=== PATIENT | male | born 1985 | race Caucasian/White ===

== ENCOUNTER 2022-09-10 21:55 | Inpatient (IN) | payer OTHER ==
[2022-09-10] MEDS ORDERED: diazePAM CARPU-JECT 10 MG/2 ML DISP.SYRIN IVPUSH ONE (22:35)
[2022-09-10] MEDS ORDERED: MAG HYDROX/AL HYDROX/SIMETH 30 ML UNIT-DOSE CUP PO ONE (22:35)
[2022-09-10] MEDS ORDERED: FAMOTIDINE 20 MG/50 ML IVPB 20 MG/50 ML MG IVPB ONE ×2 (22:35→22:42)
[2022-09-10] MEDS ORDERED: diazePAM CARPU-JECT 10 MG/2 ML DISP.SYRIN ONE ×2 (22:42→23:07)
[2022-09-10] MEDS ORDERED: MAG HYDROX/AL HYDROX/SIMETH 30 ML UNIT-DOSE CUP ONE (22:42)
[2022-09-10 23:18] LABS: HEMOGLOBIN 16.4 GM/dL (11.7-16.9); WHITE BLOOD COUNT 2.4 K/mm3 (4.0-10.0)
[2022-09-10 23:30] LABS: EPI CELLS 7 /uL (0-25.1); HYALINE CASTS 3 /uL (0-3.1); PH,URINE 6.5 (5.0-8.0); URINE APPEARANCE CLEAR; URINE BACTERIA 9 /uL (0-1359); URINE BILIRUBIN NEGATIVE (NEGATIVE); URINE COLOR YELLOW; URINE GLUCOSE (UA) NEGATIVE (NEGATIVE); URINE KETONE 1+ (NEGATIVE); URINE LEUK ESTERASE NEGATIVE (NEGATIVE); URINE NITRITE NEGATIVE (NEGATIVE); URINE PROTEIN 3+ (NEGATIVE); URINE RBC 21 /uL (0-23.9); URINE WBC 13 /uL (0-25.8)
[2022-09-10 23:39] LABS: ALBUMIN 4.8 g/dl (3.4-5.0); BLOOD UREA NITROGEN 5.5 mg/dL (7-18); CALCIUM 9.3 mg/dL (8.5-10.1)
[2022-09-10 23:43] LABS: BILIRUBIN,TOTAL 1.1 mg/dL (0.2-1)
[2022-09-10 23:44] LABS: TOT PROT 8.9 g/dl (6.4-8.2)
[2022-09-10 23:59] LABS: BASO % 1.6 % (0-2.0); EOS % 1.2 % (0-4.5); HEMATOCRIT 46.1 % (35.4-49); LYMPH % 33.3 % (8-40); MCH 33.8 pg (25.7-33.7); MCHC 35.6 g/dl (32.0-35.9); MEAN CELL VOLUME 94.7 fl (80-96); MEAN PLT VOLUME 6.8 fl (7.5-11.1); MONO % 17.8 % (3.8-10.2); NEUT % 46.1 % (42.8-82.8); PLATELET COUNT 165 10^3/uL (134-434); RBC 4.87 M/mm3 (4.00-5.60); RDW 13.9 % (11.9-15.9)
[2022-09-11 00:15] LABS: LACTIC ACID 3.1 mmol/L (0.4-2.0)
[2022-09-11] MEDS ORDERED: LACTATED RINGERS SOLUTION 1000 ML INFUS.BAG IV ONE (00:19)
[2022-09-11] MEDS: SODIUM CHLORIDE 1,000 ML IV STA ×3 (01:17→03:02)
[2022-09-11 02:16] LABS: LACTIC ACID 3.9 mmol/L (0.4-2.0)
[2022-09-11] MEDS ORDERED: THIAMINE HCL 200 MG/2 ML VIAL IVPB ONE (02:22)
[2022-09-11] MEDS ORDERED: DEXTROSE 5%-NORMAL SALINE 1,000 ML IV ONE (02:23)
[2022-09-11] MEDS ORDERED: diazePAM CARPU-JECT 10 MG/2 ML DISP.SYRIN IVPUSH ONE ×2 (02:24→04:34)
[2022-09-11] MEDS ORDERED: diazePAM CARPU-JECT 10 MG/2 ML DISP.SYRIN ONE ×3 (02:32→08:39)
[2022-09-11] MEDS ORDERED: THIAMINE HCL 200 MG/2 ML VIAL ONE (02:33)
[2022-09-11 03:13] LABS: VENOUS BASE EXCESS 0.7 mmol/L (-2-2); VENOUS O2 SATURATION 96.6 % (70-80); VENOUS PCO2 35.7 mmHg (38-52); VENOUS PH 7.449 (7.310-7.410)
[2022-09-11] MEDS ORDERED: PIPERACILLIN/TAZOB 4.5 GM 4.5 GM in DEXTROSE 5%-WATER 100 ML IVPB ONE (04:49)
[2022-09-11] MEDS: DEXTROSE 5%-NORMAL SALINE 1,000 ML IV SCH ×2 (04:58→09:09)
[2022-09-11] MEDS ORDERED: PIPERACILLIN/TAZOB 4.5 GM 4.5 GM/100 ML BAG IVPB ONE (05:02)
[2022-09-11 05:51] LABS: INR 1.05 (0.83-1.09); PROTHROMBIN TIME (PATIENT) 12.2 SEC (9.7-13.0)
[2022-09-11 05:54] LABS: ACTIVATED PTT 32.4 SECONDS (25.2-36.5)
[2022-09-11 07:23] LABS: LACTIC ACID 2.7 mmol/L (0.4-2.0)
[2022-09-11] MEDS ORDERED: diazePAM CARPU-JECT 10 MG/2 ML DISP.SYRIN IVPUSH PRN (08:19)
[2022-09-11] MEDS ORDERED: DEXTROSE 5%-LACTATED RINGERS 1,000 ML IV SCH (08:30)
[2022-09-11] MEDS: FOLIC ACID 1 MG TABLET (FP) PO SCH (10:30)
[2022-09-11] MEDS: PANTOPRAZOLE 40 MG TABLET PO SCH (10:30)
[2022-09-11] MEDS: LOSARTAN POTASSIUM 50 MG TABLET PO SCH (10:30)
[2022-09-11] MEDS: THIAMINE HCL 100 MG TABLET (FP) PO SCH (10:30)
[2022-09-11] MEDS: BUPRENORPHINE/NALOXONE 8 MG/2 MG FILM PACKET SL SCH (10:30)
[2022-09-11] MEDS: LORazepam 1 MG TABLET PO SCH ×2 (10:30→21:49)
[2022-09-11] MEDS: HEPARIN NA (PORCINE) 5,000 UNITS/ML 1ML VIAL SQ SCH ×2 (10:30→21:54)
[2022-09-11] MEDS: MULTIVITAMINS (DAILY MVI) TABLET (FP) PO SCH (10:30)
[2022-09-11] MEDS ORDERED: BUPRENORPHINE/NALOXONE 8 MG/2 MG FILM PACKET ONE (10:40)
[2022-09-11] MEDS ORDERED: LOSARTAN POTASSIUM 50 MG TABLET ONE (10:40)
[2022-09-11] MEDS ORDERED: THIAMINE HCL 100 MG TABLET (FP) ONE (10:40)
[2022-09-11] MEDS ORDERED: PANTOPRAZOLE 40 MG TABLET PO ONE (10:40)
[2022-09-11] MEDS ORDERED: MULTIVITAMINS (DAILY MVI) TABLET (FP) ONE (10:41)
[2022-09-11] MEDS ORDERED: LORazepam 1 MG TABLET ONE ×2 (10:41→10:49)
[2022-09-11] MEDS ORDERED: FOLIC ACID 1 MG TABLET (FP) ONE (10:41)
[2022-09-11] MEDS ORDERED: HEPARIN NA (PORCINE) 5,000 UNITS/ML 1ML VIAL ONE (10:42)
[2022-09-11] MEDS ORDERED: ONDANSETRON 4 MG/2 ML VIAL IVPUSH PRN (11:47)
[2022-09-11] MEDS ORDERED: ESCITALOPRAM OXALATE 10 MG TABLET ONE (11:48)
[2022-09-11] MEDS: ESCITALOPRAM OXALATE 10 MG TABLET PO SCH (11:51)
[2022-09-11 13:51] LABS: ALBUMIN 4.7 g/dl (3.4-5.0)
[2022-09-11 13:54] LABS: BILIRUBIN,DIRECT 0.5 mg/dL (0.0-0.2)
[2022-09-11 13:56] LABS: BILIRUBIN,TOTAL 1.8 mg/dL (0.2-1); TOT PROT 8.4 g/dl (6.4-8.2)
[2022-09-11] MEDS ORDERED: GABAPENTIN 300 MG CAPSULE ONE (14:22)
[2022-09-11] MEDS: GABAPENTIN 300 MG CAPSULE PO SCH ×2 (14:26→21:52)
[2022-09-11] MEDS ORDERED: LIDOCAINE 5% TOPICAL PATCH ONE (15:20)
[2022-09-11] MEDS: LIDOCAINE 5% TOPICAL PATCH TP SCH (15:50)
[2022-09-11] MEDS ORDERED: KETOROLAC TROMETHAMINE 15 MG/ML VIAL IVPUSH ONE (17:47)
[2022-09-11] MEDS ORDERED: KETOROLAC TROMETHAMINE 15 MG/ML VIAL ONE (18:17)
[2022-09-11] MEDS: LORazepam 2 MG/ML SDV VIAL IVPUSH PRN (20:25)
[2022-09-11] MEDS: QUEtiapine FUMARATE 50 MG TABLET PO SCH (21:52)
[2022-09-11] MEDS: LIDOCAINE PATCH REMOVAL MC SCH (21:53)
[2022-09-12] MEDS: GABAPENTIN 300 MG CAPSULE PO SCH ×3 (06:11→22:01)
[2022-09-12] MEDS: DEXTROSE 5%-NORMAL SALINE 1,000 ML IV SCH (06:19)
[2022-09-12] MEDS: LEVOTHYROXINE NA 100 MCG TABLET (FP) PO SCH (06:22)
[2022-09-12 08:05] LABS: BASO % 1.1 % (0-2.0); EOS % 4.2 % (0-4.5); HEMATOCRIT 40.7 % (35.4-49); HEMOGLOBIN 14.3 GM/dL (11.7-16.9); MCH 33.4 pg (25.7-33.7); MCHC 35.2 g/dl (32.0-35.9); MEAN CELL VOLUME 94.8 fl (80-96); MONO % 16.4 % (3.8-10.2); NEUT % 48.3 % (42.8-82.8); RBC 4.29 M/mm3 (4.00-5.60); RDW 13.5 % (11.9-15.9)
[2022-09-12 08:10] LABS: MEAN PLT VOLUME 7.4 fl (7.5-11.1); PLATELET COUNT 92 10^3/uL (134-434)
[2022-09-12 08:24] LABS: BLOOD UREA NITROGEN 9.7 mg/dL (7-18); CALCIUM 8.9 mg/dL (8.5-10.1); MAGNESIUM 1.8 mg/dL (1.8-2.4)
[2022-09-12 08:29] LABS: BILIRUBIN,TOTAL 1.5 mg/dL (0.2-1); TOT PROT 7.4 g/dl (6.4-8.2)
[2022-09-12] MEDS: LIDOCAINE 5% TOPICAL PATCH TP SCH (09:38)
[2022-09-12] MEDS: BUPRENORPHINE/NALOXONE 8 MG/2 MG FILM PACKET SL SCH (09:39)
[2022-09-12] MEDS: LORazepam 1 MG TABLET PO SCH ×2 (09:39→22:02)
[2022-09-12] MEDS: FOLIC ACID 1 MG TABLET (FP) PO SCH (09:39)
[2022-09-12] MEDS: THIAMINE HCL 100 MG TABLET (FP) PO SCH (09:41)
[2022-09-12] MEDS: PANTOPRAZOLE 40 MG TABLET PO SCH (09:41)
[2022-09-12] MEDS: LOSARTAN POTASSIUM 50 MG TABLET PO SCH (09:41)
[2022-09-12] MEDS: HEPARIN NA (PORCINE) 5,000 UNITS/ML 1ML VIAL SQ SCH ×2 (09:41→22:01)
[2022-09-12] MEDS: ESCITALOPRAM OXALATE 10 MG TABLET PO SCH (09:41)
[2022-09-12] MEDS: MULTIVITAMINS (DAILY MVI) TABLET (FP) PO SCH (09:41)
[2022-09-12] MEDS: LORazepam 2 MG/ML SDV VIAL IVPUSH PRN (19:04)
[2022-09-12] MEDS: LIDOCAINE PATCH REMOVAL MC SCH (22:02)
[2022-09-12] MEDS: QUEtiapine FUMARATE 50 MG TABLET PO SCH (22:02)
[2022-09-12 22:50] VITALS: BMI 31.3
[2022-09-13] MEDS: LEVOTHYROXINE NA 100 MCG TABLET (FP) PO SCH (06:24)
[2022-09-13] MEDS: GABAPENTIN 300 MG CAPSULE PO SCH ×3 (06:24→22:20)
[2022-09-13] MEDS: DEXTROSE 5%-NORMAL SALINE 1,000 ML IV SCH ×2 (06:27→14:13)
[2022-09-13 08:00] LABS: ALBUMIN 3.8 g/dl (3.4-5.0); BLOOD UREA NITROGEN 14.5 mg/dL (7-18)
[2022-09-13 08:03] LABS: BILIRUBIN,TOTAL 1.2 mg/dL (0.2-1); TOT PROT 7.1 g/dl (6.4-8.2)
[2022-09-13] MEDS: LIDOCAINE 5% TOPICAL PATCH TP SCH (09:19)
[2022-09-13] MEDS: ESCITALOPRAM OXALATE 10 MG TABLET PO SCH (09:20)
[2022-09-13] MEDS: LORazepam 1 MG TABLET PO SCH ×2 (09:20→22:20)
[2022-09-13] MEDS: PANTOPRAZOLE 40 MG TABLET PO SCH (09:20)
[2022-09-13] MEDS: MULTIVITAMINS (DAILY MVI) TABLET (FP) PO SCH (09:20)
[2022-09-13] MEDS: HEPARIN NA (PORCINE) 5,000 UNITS/ML 1ML VIAL SQ SCH ×2 (09:20→22:21)
[2022-09-13] MEDS: THIAMINE HCL 100 MG TABLET (FP) PO SCH (09:20)
[2022-09-13] MEDS: FOLIC ACID 1 MG TABLET (FP) PO SCH (09:21)
[2022-09-13] MEDS: BUPRENORPHINE/NALOXONE 8 MG/2 MG FILM PACKET SL SCH (09:22)
[2022-09-13] MEDS: LOSARTAN POTASSIUM 50 MG TABLET PO SCH (09:22)
[2022-09-13 09:33] LABS: HEMATOCRIT 41.9 % (35.4-49); HEMOGLOBIN 14.5 GM/dL (11.7-16.9); MCHC 34.6 g/dl (32.0-35.9); MEAN CELL VOLUME 95.2 fl (80-96); PLATELET COUNT 79 10^3/uL (134-434); RDW 13.7 % (11.9-15.9)
[2022-09-13 09:49] LABS: WHITE BLOOD COUNT 1.9 K/mm3 (4.0-10.0)
[2022-09-13 09:51] LABS: BILIRUBIN,DIRECT 0.4 mg/dL (0.0-0.2)
[2022-09-13 11:28] LABS: ANISOCYTOSIS 0; MACROCYTOSIS 1+
[2022-09-13] MEDS ORDERED: LORazepam 2 MG/ML SDV VIAL IVPUSH PRN (13:20)
[2022-09-13] MEDS ORDERED: ONDANSETRON 4 MG/2 ML VIAL IVPUSH PRN (13:20)
[2022-09-13 15:07] LABS: COCAINE QUALITATIVE URINE Negative ng/mL (Cutoff=300); MARIJUANA QL URINE CANNABINOID Negative ng/mL (Cutoff=50); METHADONE,QUALITATIVE URINE Negative ng/mL (Cutoff=300); OPIATES QL URINE Negative ng/mL (Cutoff=300); PHENCYCLIDINE,QUAL URINE Negative ng/mL (Cutoff=25); PROPOXYPHENE QL URINE Negative ng/mL (Cutoff=300); URINE AMPHETAMINES Negative ng/mL (Cutoff=1000)
[2022-09-13] MEDS ORDERED: PIPERACILLIN/TAZOB 3.375 GM 3.375 GM in DEXTROSE 5%-WATER - 50 ML IVPB SCH (18:00)
[2022-09-13] MEDS ORDERED: QUEtiapine FUMARATE 25 MG TABLET ONE (21:22)
[2022-09-13] MEDS: QUEtiapine FUMARATE 50 MG TABLET PO SCH (22:20)
[2022-09-14] MEDS: PIPERACILLIN/TAZOB 3.375 GM 3.375 GM in DEXTROSE 5%-WATER - 50 ML IVPB SCH ×3 (00:10→09:10)
[2022-09-14] MEDS: LIDOCAINE PATCH REMOVAL MC SCH ×2 (02:46→21:24)
[2022-09-14] MEDS: GABAPENTIN 300 MG CAPSULE PO SCH ×3 (05:24→21:22)
[2022-09-14] MEDS: LEVOTHYROXINE NA 100 MCG TABLET (FP) PO SCH (06:04)
[2022-09-14] MEDS: DEXTROSE 5%-NORMAL SALINE 1,000 ML IV SCH ×3 (07:36→21:22)
[2022-09-14] MEDS: LIDOCAINE 5% TOPICAL PATCH TP SCH (09:08)
[2022-09-14] MEDS: LORazepam 1 MG TABLET PO SCH ×2 (09:08→21:22)
[2022-09-14] MEDS: BUPRENORPHINE/NALOXONE 8 MG/2 MG FILM PACKET SL SCH (09:08)
[2022-09-14] MEDS: PANTOPRAZOLE 40 MG TABLET PO SCH (09:09)
[2022-09-14] MEDS: LOSARTAN POTASSIUM 50 MG TABLET PO SCH (09:09)
[2022-09-14] MEDS: ESCITALOPRAM OXALATE 10 MG TABLET PO SCH (09:09)
[2022-09-14] MEDS: THIAMINE HCL 100 MG TABLET (FP) PO SCH (09:09)
[2022-09-14] MEDS: FOLIC ACID 1 MG TABLET (FP) PO SCH (09:09)
[2022-09-14] MEDS: MULTIVITAMINS (DAILY MVI) TABLET (FP) PO SCH (09:09)
[2022-09-14] MEDS: HEPARIN NA (PORCINE) 5,000 UNITS/ML 1ML VIAL SQ SCH (09:09)
[2022-09-14 09:22] VITALS: RESP 20
[2022-09-14 11:14] LABS: BASO % 1.2 % (0-2.0); EOS % 4.6 % (0-4.5); HEMATOCRIT 38.9 % (35.4-49); HEMOGLOBIN 13.8 GM/dL (11.7-16.9); LYMPH % 23.7 % (8-40); MCH 33.4 pg (25.7-33.7); MCHC 35.4 g/dl (32.0-35.9); MEAN CELL VOLUME 94.2 fl (80-96); MEAN PLT VOLUME 7.3 fl (7.5-11.1); MONO % 18.1 % (3.8-10.2); NEUT % 52.4 % (42.8-82.8); PLATELET COUNT 88 10^3/uL (134-434); RBC 4.13 M/mm3 (4.00-5.60); RDW 13.3 % (11.9-15.9); WHITE BLOOD COUNT 2.1 K/mm3 (4.0-10.0)
[2022-09-14 11:47] LABS: ALBUMIN 3.7 g/dl (3.4-5.0); BLOOD UREA NITROGEN 15.6 mg/dL (7-18); CALCIUM 8.7 mg/dL (8.5-10.1)
[2022-09-14 11:50] LABS: PHOSPHOROUS 3.3 mg/dL (2.5-4.9)
[2022-09-14 11:51] LABS: MAGNESIUM 2.1 mg/dL (1.8-2.4)
[2022-09-14 11:52] LABS: BILIRUBIN,TOTAL 1.2 mg/dL (0.2-1); TOT PROT 6.8 g/dl (6.4-8.2)
[2022-09-14] MEDS: KCL 10 MEQ IVPB 10 MEQ/100 ML INFUS.BAG IVPB SCH ×3 (12:54→15:27)
[2022-09-14] MEDS: LORazepam 2 MG/ML SDV VIAL IVPUSH PRN ×2 (15:32→23:29)
[2022-09-14] MEDS: QUEtiapine FUMARATE 50 MG TABLET PO SCH (21:22)
[2022-09-15] MEDS: DEXTROSE 5%-NORMAL SALINE 1,000 ML IV SCH (05:36)
[2022-09-15] MEDS: GABAPENTIN 300 MG CAPSULE PO SCH ×2 (05:38→13:20)
[2022-09-15] MEDS: LEVOTHYROXINE NA 100 MCG TABLET (FP) PO SCH (06:40)
[2022-09-15] MEDS: LIDOCAINE 5% TOPICAL PATCH TP SCH (09:03)
[2022-09-15] MEDS: LORazepam 1 MG TABLET PO SCH (09:04)
[2022-09-15] MEDS: BUPRENORPHINE/NALOXONE 8 MG/2 MG FILM PACKET SL SCH (09:04)
[2022-09-15] MEDS: ESCITALOPRAM OXALATE 10 MG TABLET PO SCH (09:04)
[2022-09-15] MEDS: MULTIVITAMINS (DAILY MVI) TABLET (FP) PO SCH (09:04)
[2022-09-15] MEDS: FOLIC ACID 1 MG TABLET (FP) PO SCH (09:04)
[2022-09-15] MEDS: LOSARTAN POTASSIUM 50 MG TABLET PO SCH (09:04)
[2022-09-15] MEDS: THIAMINE HCL 100 MG TABLET (FP) PO SCH (09:04)
[2022-09-15] MEDS: PANTOPRAZOLE 40 MG TABLET PO SCH (09:04)
[2022-09-15 10:32] LABS: BASO % 1.5 % (0-2.0); EOS % 6.3 % (0-4.5); HEMATOCRIT 38.9 % (35.4-49); HEMOGLOBIN 13.5 GM/dL (11.7-16.9); LYMPH % 35.5 % (8-40); MCH 33.1 pg (25.7-33.7); MCHC 34.6 g/dl (32.0-35.9); MEAN CELL VOLUME 95.6 fl (80-96); MEAN PLT VOLUME 7.9 fl (7.5-11.1); MONO % 18.6 % (3.8-10.2); NEUT % 38.1 % (42.8-82.8); PLATELET COUNT 96 10^3/uL (134-434); RBC 4.07 M/mm3 (4.00-5.60); RDW 13.4 % (11.9-15.9)
[2022-09-15 10:34] LABS: WHITE BLOOD COUNT 1.6 K/mm3 (4.0-10.0)
[2022-09-15 10:35] LABS: INR 1.04 (0.83-1.09); PROTHROMBIN TIME (PATIENT) 12.1 SEC (9.7-13.0)
[2022-09-15 10:56] LABS: ALBUMIN 3.4 g/dl (3.4-5.0); BLOOD UREA NITROGEN 10.4 mg/dL (7-18); CALCIUM 8.2 mg/dL (8.5-10.1); MAGNESIUM 2.1 mg/dL (1.8-2.4)
[2022-09-15 10:57] LABS: ALBUMIN 3.4 g/dl (3.4-5.0)
[2022-09-15 10:59] LABS: BILIRUBIN,TOTAL 0.8 mg/dL (0.2-1); CREATININE 0.8 mg/dL (0.55-1.3); PHOSPHOROUS 3.3 mg/dL (2.5-4.9)
[2022-09-15 11:00] LABS: TOT PROT 6.3 g/dl (6.4-8.2)
[2022-09-15 11:01] LABS: BILIRUBIN,DIRECT 0.3 mg/dL (0.0-0.2)
[2022-09-15 11:02] LABS: TOT PROT 6.2 g/dl (6.4-8.2)
[2022-09-15 11:03] LABS: BILIRUBIN,TOTAL 0.8 mg/dL (0.2-1)
[2022-09-15 11:13] LABS: ANISOCYTOSIS 0; MACROCYTOSIS 0
[2022-09-15] MEDS ORDERED: POTASSIUM CHLORIDE ORAL LIQUID 20 MEQ/15 ML PO ONE (11:34)
[2022-09-15 14:37] VITALS: BP 150/106; PULSE 74; TEMP 97.6
[2022-09-16 17:06] LABS: GLIADIN ANTIBODY IGA 7 units (0-19); GLIADIN ANTIBODY IGG 3 units (0-19); TRANSGLUTAMINASE IGG < 2 U/mL (0-5)
== END 2022-09-15 17:00 | disposition home or self-care (01) | DRG 775 ==
LOC: JER 21:55 → JERBED 09-11 00:17 → J4W 09-11 19:26 → J5S 09-13 13:15 → J6S 09-14 08:30
PROVIDERS: ADMIT Internal Medicine; ATTEND Internal Medicine
DX: F10.239 Alcohol dependence with withdrawal, unspecified (principal); M62.82 Rhabdomyolysis; F13.20 Sedative, hypnotic or anxiolytic dependence, uncomplicated; F19.20 Other psychoactive substance dependence, uncomplicated; F33.9 Major depressive disorder, recurrent, unspecified; I10 Essential (primary) hypertension; K70.10 Alcoholic hepatitis without ascites; F41.8 Other specified anxiety disorders; D69.6 Thrombocytopenia, unspecified; R16.1 Splenomegaly, not elsewhere classified; R74.01 Elevation of levels of liver transaminase levels; E66.9 Obesity, unspecified; Z68.31 Body mass index [BMI] 31.0-31.9, adult
CPT/HCPCS: 36415; 74019-TC-FY; 74177-TC; 74181-TC; 76705-TC; 80053; 80076; 80307; 81003; 82105; 82140; 82248; 82550; 82553; 82607; 82728; 82746; 82784; 82803; 82962; 83516; 83540; 83550; 83605; 83690; 83735; 84100; 84484; 85025; 85610; 85730; 86038; 86705; 86803; 86850; 86900; 86901; 87340; 87517; 93005; 93010; 99285-25; C9803-CS; J1644; Q9967; U0003; U0005

== ENCOUNTER 2022-11-03 18:03 | Emergency (ER) | payer OTHER ==
[2022-11-03 18:31] VITALS: BP 141/90; PULSE 97; RESP 14; TEMP 98; BMI 59.9
[2022-11-03] MEDS ORDERED: HALOPERIDOL LACTATE 5 MG/ML IM ONE ×2 (20:19→20:22)
[2022-11-03] MEDS ORDERED: LORazepam 2 MG/ML SDV VIAL IM ONE (20:20)
[2022-11-03] MEDS ORDERED: ACETAMINOPHEN 500 MG TABLET (FP) PO ONE (23:44)
[2022-11-03] MEDS ORDERED: ACETAMINOPHEN 325 MG TABLET (FP) ONE (23:45)
== END 2022-11-03 23:56 | disposition home or self-care (01) ==
LOC: JER 18:03
PROC: 3E0233Z Introduction of Anti-inflammatory into Muscle, Percutaneous Approach (ICD-10-PCS; principal; 2022-11-03)
PROC: 3E0233Z Introduction of Anti-inflammatory into Muscle, Percutaneous Approach (ICD-10-PCS; 2022-11-03)
PROC: 3E0233Z Introduction of Anti-inflammatory into Muscle, Percutaneous Approach (ICD-10-PCS; 2022-11-03)
DX: F10.229 Alcohol dependence with intoxication, unspecified (principal); S00.81XA Abrasion of other part of head, initial encounter; S00.31XA Abrasion of nose, initial encounter; X58.XXXA Exposure to other specified factors, initial encounter; Y90.9 Presence of alcohol in blood, level not specified
CPT/HCPCS: 70450-TC; 70486-TC; 72125-TC; 93005; 93010; 99284-25

== ENCOUNTER 2023-11-18 18:34 | Inpatient (IN) | payer OTHER ==
[2023-11-18] MEDS ORDERED: chlordiazePOXIDE HCL 25 MG CAPSULE ONE (20:31)
[2023-11-18] MEDS: chlordiazePOXIDE HCL 25 MG CAPSULE PO ONE (20:59)
[2023-11-18 21:05] LABS: BASO % 3.6 % (0-2.0); EOS % 3.5 % (0-4.5); EPI CELLS 14 /uL (0-25.1); HEMATOCRIT 40.4 % (35.4-49); HEMOGLOBIN 14.1 GM/dL (11.7-16.9); HYALINE CASTS 0 /uL (0-3.1); LYMPH % 49.7 % (8-40); MCHC 34.9 g/dl (32.0-35.9); MEAN CELL VOLUME 97.4 fl (80-96); MEAN PLT VOLUME 6.8 fl (7.5-11.1); NEUT % 28.2 % (42.8-82.8); PLATELET COUNT 111 10^3/uL (134-434); RBC 4.15 M/mm3 (4.00-5.60); URINE APPEARANCE CLEAR; URINE BACTERIA 14 /uL (0-1359); URINE BILIRUBIN NEGATIVE (NEGATIVE); URINE COLOR YELLOW; URINE GLUCOSE (UA) NEGATIVE (NEGATIVE); URINE KETONE 1+ (NEGATIVE); URINE LEUK ESTERASE NEGATIVE (NEGATIVE); URINE NITRITE NEGATIVE (NEGATIVE); URINE PROTEIN 1+ (NEGATIVE); URINE RBC 13 /uL (0-23.9); URINE WBC 16 /uL (0-25.8); WHITE BLOOD COUNT 2.3 K/mm3 (4.0-10.0)
[2023-11-18 21:07] LABS: VENOUS BASE EXCESS 0.9 mmol/L (-2-2); VENOUS O2 SATURATION 87.5 % (70-80); VENOUS PCO2 46.1 mmHg (38-52); VENOUS PH 7.379 (7.310-7.410)
[2023-11-18 21:33] LABS: POTASSIUM 3.4 mmol/L (3.5-5.1)
[2023-11-18 21:35] LABS: CALCIUM 8.8 mg/dL (8.5-10.1)
[2023-11-18 21:36] LABS: ALBUMIN 4.2 g/dl (3.4-5.0); BLOOD UREA NITROGEN 8.1 mg/dL (7-18)
[2023-11-18 21:39] LABS: CREATININE 0.9 mg/dL (0.55-1.3)
[2023-11-18 21:40] LABS: TOT PROT 8.3 g/dl (6.4-8.2)
[2023-11-18 21:43] LABS: BILIRUBIN,TOTAL 1.4 mg/dL (0.2-1)
[2023-11-18] MEDS ORDERED: LIDOCAINE 4% PATCH TP ONE (22:47)
[2023-11-18] MEDS: LIDOCAINE 5% TOPICAL PATCH TP ONE (22:53)
[2023-11-18] MEDS: D5-1/2NS+40 MEQ KCL - 40 MEQ/1,000 ML INFUS.BAG IV SCH (22:53)
[2023-11-18] MEDS: LIDOCAINE PATCH REMOVAL MC SCH (23:12)
[2023-11-19] MEDS: LACTATED RINGERS SOLUTION 1,000 ML/1,000 ML INFUS.BAG IV SCH (01:19)
[2023-11-19] MEDS: THIAMINE HCL 200 MG/2 ML VIAL IVPB SCH ×2 (01:20→22:03)
[2023-11-19] MEDS: chlordiazePOXIDE HCL 25 MG CAPSULE PO PRN (04:06)
[2023-11-19] MEDS: TRIMETHOBENZAMIDE HCL 200MG/2ML INJ IM PRN (04:10)
[2023-11-19] MEDS: LORazepam 2 MG/ML SDV VIAL IVPUSH PRN ×2 (04:49→11:33)
[2023-11-19 04:57] LABS: COCAINE, UR NEGATIVE (NEGATIVE); METHADONE, UR NEGATIVE (NEGATIVE); OPIATES, URI NEGATIVE (NEGATIVE); PHENCYCLIDINE,URINE NEGATIVE (NEGATIVE); URINE AMPHETAMINES NEGATIVE (NEGATIVE); URINE BARBITURATES NEGATIVE (NEGATIVE)
[2023-11-19 05:10] LABS: URINE BENZODIAZEPINES POSITIVE (NEGATIVE)
[2023-11-19] MEDS: chlordiazePOXIDE HCL 25 MG CAPSULE PO SCH (06:29)
[2023-11-19] MEDS: GABAPENTIN 300 MG CAPSULE PO SCH ×2 (06:31→22:02)
[2023-11-19] MEDS: LORazepam 2 MG/ML SDV VIAL IVPUSH ONE ×2 (07:05→17:13)
[2023-11-19] MEDS ORDERED: LORazepam 1 MG TABLET PO PRN (08:27)
[2023-11-19] MEDS: LORazepam 1 MG TABLET PO ONE (08:38)
[2023-11-19 08:46] LABS: HEMATOCRIT 39.9 % (35.4-49); HEMOGLOBIN 13.4 GM/dL (11.7-16.9); MCH 33.2 pg (25.7-33.7); MCHC 33.7 g/dl (32.0-35.9); MEAN CELL VOLUME 98.4 fl (80-96); MEAN PLT VOLUME 6.9 fl (7.5-11.1); PLATELET COUNT 61 10^3/uL (134-434); RBC 4.05 M/mm3 (4.00-5.60); RDW 12.6 % (11.9-15.9)
[2023-11-19 08:52] LABS: WHITE BLOOD COUNT 1.2 K/mm3 (4.0-10.0)
[2023-11-19 09:06] LABS: CHLORIDE 96 mmol/L (98-107); POTASSIUM 3.5 mmol/L (3.5-5.1); SODIUM 136 mmol/L (136-145)
[2023-11-19 09:09] LABS: ALBUMIN 3.8 g/dl (3.4-5.0); ANION GAP 12 mmol/L (4-13); BLOOD UREA NITROGEN 7.7 mg/dL (7-18); CALCIUM 8.8 mg/dL (8.5-10.1); CO2 27 mmol/L (21-32); GLUCOSE,RANDOM 123 mg/dL (74-106)
[2023-11-19 09:10] LABS: MAGNESIUM 1.5 mg/dL (1.8-2.4)
[2023-11-19 09:12] LABS: CREATININE 1.2 mg/dL (0.55-1.3); SGOT/AST 732 U/L (15-37); SGPT/ALT 293 U/L (13-61)
[2023-11-19 09:14] LABS: BILIRUBIN,TOTAL 1.7 mg/dL (0.2-1); TOT PROT 7.7 g/dl (6.4-8.2)
[2023-11-19] MEDS: ESCITALOPRAM OXALATE 10 MG TABLET PO SCH (09:14)
[2023-11-19] MEDS: LOSARTAN POTASSIUM 50 MG TABLET PO SCH (09:14)
[2023-11-19] MEDS: BUPRENORPHINE/NALOXONE 8 MG/2 MG FILM PACKET SL SCH ×2 (09:14→22:03)
[2023-11-19 09:15] LABS: ALK PHOS 159 U/L (45-117)
[2023-11-19 09:22] LABS: PHOSPHOROUS 1.1 mg/dL (2.5-4.9)
[2023-11-19] MEDS: LORazepam 1 MG TABLET PO SCH (11:01)
[2023-11-19] MEDS: FOLIC ACID INJECTION - 1 MG, THIAMINE HCL 100 MG, MULTIVIT INJECTION ADULT 10 ML in SOD... IVPB ONE (11:10)
[2023-11-19] MEDS: POTASSIUM PHOSPHATE 15 MM in SODIUM CHLORIDE 250 ML IVPB ONE (11:12)
[2023-11-19] MEDS ORDERED: MAGNESIUM HYDROX 2400MG/30ML ORAL SUSPENSION 30 ML CUP PO PRN (12:42)
[2023-11-19] MEDS ORDERED: MAG HYDROX/AL HYDROX/SIMETH 30 ML UNIT-DOSE CUP PO PRN (12:42)
[2023-11-19] MEDS ORDERED: hydrOXYzine PAMOATE 25 MG CAPSULE (FP) PO PRN (12:42)
[2023-11-19] MEDS ORDERED: LOPERAMIDE HCL 2 MG CAPSULE PO PRN (12:42)
[2023-11-19] MEDS ORDERED: BISMUTH SUBSALICYLATE 524 MG/30 ML PO PRN (12:42)
[2023-11-19] MEDS ORDERED: BENZOCAINE/MENTHOL (CHLORASEPTIC ) LOZENGE MM PRN (12:42)
[2023-11-19] MEDS ORDERED: DICYCLOMINE HCL 10 MG CAPSULE PO PRN (12:42)
[2023-11-19] MEDS ORDERED: METOPROLOL TARTRATE 5 MG/5 ML VIAL IVPUSH PRN ×2 (14:04→21:55)
[2023-11-19] MEDS: diazePAM CARPU-JECT 10 MG/2 ML DISP.SYRIN IVPUSH ONE (15:01)
[2023-11-19 15:14] LABS: INR 1.1 (0.83-1.09); PROTHROMBIN TIME (PATIENT) 12.8 SEC (9.7-13.0)
[2023-11-19 15:46] LABS: AMYLASE 56 U/L (25-115)
[2023-11-19] MEDS: DEXMEDETOMIDINE PREMIX 400 MCG/100 ML BAG IVPB SCH ×2 (15:59→19:22)
[2023-11-19] MEDS ORDERED: ALBUTEROL SO4 0.5 % INH SOLN 2.5 MG/0.5 ML VIAL.NEB. NEB PRN (16:16)
[2023-11-19] MEDS: LORazepam 40 MG in DEXTROSE 5%-WATER - 230 ML IVPB SCH (16:42)
[2023-11-19] MEDS: MAGNESIUM SULF 50% (8.12 MEQ/2 ML-1 GM VIAL) IVPB ONE (16:52)
[2023-11-19] MEDS: SODIUM CHLORIDE 1,000 ML IV SCH (16:53)
[2023-11-19] MEDS ORDERED: LABETALOL HCL 5 MG/1 ML (100MG/20 ML VIAL) ONE (17:10)
[2023-11-19] MEDS: LABETALOL HCL 5 MG/1 ML (100MG/20 ML VIAL) IVPUSH ONE (17:35)
[2023-11-19] MEDS: NICOTINE 14 MG/24 HOURS TOPICAL PATCH TD SCH (17:36)
[2023-11-19] MEDS: amLODIPine BESYLATE 10 MG TABLET (FP) PO ONE (17:38)
[2023-11-19] MEDS: LACTATED RINGERS SOLUTION 1,000 ML/1,000 ML INFUS.BAG IV STA (18:45)
[2023-11-19] MEDS: CHLORHEXIDINE GLUCONATE 4% CLEANSER FOR DECOLONIZATION TP SCH (21:32)
[2023-11-19] MEDS: MUPIROCIN 2% TOPICAL OINTMENT FOR DECOLONIZATION NS SCH (21:32)
[2023-11-19] MEDS: QUEtiapine FUMARATE 50 MG TABLET PO SCH ×2 (21:32→22:02)
[2023-11-19] MEDS ORDERED: TRIMETHOBENZAMIDE HCL 200MG/2ML INJ IM PRN (21:55)
[2023-11-19] MEDS ORDERED: LEVOTHYROXINE NA 100 MCG TABLET (FP) PO SCH (22:00)
[2023-11-19] MEDS: LIDOCAINE PATCH REMOVAL MC SCH (22:02)
[2023-11-19] MEDS: BUDESONIDE/FORMETEROL FUMARATE 160/4.5 mcg INHALER IH SCH (23:00)
[2023-11-19] MEDS: FOLIC ACID 1 MG TABLET (FP) PO SCH (23:00)
[2023-11-19] MEDS ORDERED: THIAMINE HCL 200 MG/2 ML VIAL IVPB SCH (23:35)
[2023-11-19] MEDS ORDERED: FOLIC ACID 1 MG TABLET (FP) PO SCH (23:35)
[2023-11-20] MEDS ORDERED: chlordiazePOXIDE HCL 25 MG CAPSULE PO SCH (05:00)
[2023-11-20] MEDS: LEVOTHYROXINE SODIUM 100 MCG 5 ML VIAL IVPUSH SCH (06:07)
[2023-11-20 07:36] LABS: HEMATOCRIT 38.2 % (35.4-49); HEMOGLOBIN 12.9 GM/dL (11.7-16.9); MCH 33.8 pg (25.7-33.7); MCHC 33.9 g/dl (32.0-35.9); MEAN CELL VOLUME 99.8 fl (80-96); MEAN PLT VOLUME 7.5 fl (7.5-11.1); PLATELET COUNT 64 10^3/uL (134-434); RBC 3.83 M/mm3 (4.00-5.60); RDW 13.1 % (11.9-15.9)
[2023-11-20] MEDS: PHENobarbital SODIUM 65 MG/1 ML VIAL IVPUSH PRN (07:39)
[2023-11-20 07:44] LABS: INR 1.05 (0.83-1.09); PROTHROMBIN TIME (PATIENT) 12.2 SEC (9.7-13.0)
[2023-11-20 08:14] LABS: POTASSIUM 3.2 mmol/L (3.5-5.1)
[2023-11-20 08:22] LABS: WHITE BLOOD COUNT 1.6 K/mm3 (4.0-10.0)
[2023-11-20 08:24] LABS: CALCIUM 8.6 mg/dL (8.5-10.1)
[2023-11-20 08:25] LABS: ALBUMIN 3.6 g/dl (3.4-5.0); BLOOD UREA NITROGEN 9.6 mg/dL (7-18); MAGNESIUM 2.2 mg/dL (1.8-2.4)
[2023-11-20 08:28] LABS: CREATININE 1.8 mg/dL (0.55-1.3); PHOSPHOROUS 1.9 mg/dL (2.5-4.9)
[2023-11-20 08:29] LABS: BILIRUBIN,TOTAL 2.3 mg/dL (0.2-1); TOT PROT 7.5 g/dl (6.4-8.2)
[2023-11-20] MEDS: PANTOPRAZOLE SODIUM 40 MG VIAL IVPUSH SCH (09:07)
[2023-11-20] MEDS: ESCITALOPRAM OXALATE 10 MG TABLET PO SCH (09:07)
[2023-11-20] MEDS: LOSARTAN POTASSIUM 50 MG TABLET PO SCH ×2 (09:08→09:42)
[2023-11-20] MEDS: amLODIPine BESYLATE 5 MG TABLET (FP) PO SCH ×2 (09:08→10:01)
[2023-11-20 09:10] LABS: HIV INTERPRETATION NEGATIVE (NEGATIVE)
[2023-11-20] MEDS ORDERED: LACTATED RINGERS SOLUTION 1,000 ML/1,000 ML INFUS.BAG IV SCH (09:30)
[2023-11-20] MEDS ORDERED: POTASSIUM CHLORIDE TABS 20 MEQ TABLET.ER (FP) PO SCH (09:30)
[2023-11-20] MEDS: POTASSIUM CHLORIDE ORAL LIQUID 20 MEQ/15 ML PO ONE (09:41)
[2023-11-20] MEDS: KCL 10 MEQ IVPB 10 MEQ/100 ML INFUS.BAG IVPB SCH (09:41)
[2023-11-20] MEDS: SODIUM CHLORIDE 1,000 ML IV SCH (09:42)
[2023-11-20] MEDS ORDERED: PANTOPRAZOLE SODIUM 40 MG VIAL IVPUSH SCH (10:00)
[2023-11-20 10:28] LABS: ANISOCYTOSIS 0; HELMET CELLS 0; HOWELL-JOLLY BODIES 0; MACROCYTOSIS 0; OVALOCYTE 0; ROULEAU 0; SICKELED CELLS 0; TARGET CELLS 0; TEAR DROP CELLS 0; TOXIC GRANULATION 0
[2023-11-20] MEDS: SODIUM PHOSPHATE - 15 MM in DEXTROSE 5%-WATER - 250 ML IVPB ONE (14:49)
[2023-11-20] MEDS: ACETAMINOPHEN 1000 MG/100 ML BAG IVPB PRN (17:23)
[2023-11-20 17:53] LABS: EPI CELLS 11 /uL (0-25.1); HYALINE CASTS 5 /uL (0-3.1); URINE APPEARANCE CLEAR; URINE BACTERIA 0 /uL (0-1359); URINE BILIRUBIN 1+ (NEGATIVE); URINE COLOR ORANGE; URINE GLUCOSE (UA) NEGATIVE (NEGATIVE); URINE KETONE TRACE (NEGATIVE); URINE LEUK ESTERASE NEGATIVE (NEGATIVE); URINE NITRITE NEGATIVE (NEGATIVE); URINE PROTEIN 1+ (NEGATIVE); URINE RBC 28 /uL (0-23.9); URINE WBC 28 /uL (0-25.8)
[2023-11-20] MEDS: CEFTRIAXONE 1 GM in DEXTROSE 5%-WATER - 50 ML IVPB SCH (19:44)
[2023-11-20] MEDS: AZITHROMYCIN IVPB 500 MG/250 ML BAG IVPB SCH (19:45)
[2023-11-21] MEDS ORDERED: chlordiazePOXIDE HCL 10 MG CAPSULE PO PRN
[2023-11-21] MEDS ORDERED: chlordiazePOXIDE HCL 10 MG CAPSULE PO SCH (05:00)
[2023-11-21] MEDS ORDERED: LORazepam 1 MG TABLET PO SCH (05:00)
[2023-11-21 07:33] LABS: HEMATOCRIT 37.3 % (35.4-49); HEMOGLOBIN 12.6 GM/dL (11.7-16.9); MCH 33.6 pg (25.7-33.7); MCHC 33.8 g/dl (32.0-35.9); MEAN CELL VOLUME 99.2 fl (80-96); MEAN PLT VOLUME 7.7 fl (7.5-11.1); PLATELET COUNT 60 10^3/uL (134-434); RBC 3.76 M/mm3 (4.00-5.60); RDW 12.7 % (11.9-15.9)
[2023-11-21 07:41] LABS: WHITE BLOOD COUNT 1.5 K/mm3 (4.0-10.0)
[2023-11-21 07:46] LABS: INR 1.12 (0.83-1.09)
[2023-11-21 08:04] LABS: POTASSIUM 3.5 mmol/L (3.5-5.1)
[2023-11-21 08:06] LABS: CALCIUM 8.3 mg/dL (8.5-10.1)
[2023-11-21 08:07] LABS: ALBUMIN 3.5 g/dl (3.4-5.0); BLOOD UREA NITROGEN 7.9 mg/dL (7-18); MAGNESIUM 1.7 mg/dL (1.8-2.4)
[2023-11-21 08:10] LABS: CREATININE 0.8 mg/dL (0.55-1.3); PHOSPHOROUS 2.2 mg/dL (2.5-4.9)
[2023-11-21 08:11] LABS: TOT PROT 7.1 g/dl (6.4-8.2)
[2023-11-21] MEDS ORDERED: MAGNESIUM SULF 50% (8.12 MEQ/2 ML-1 GM VIAL) IVPB ONE (08:15)
[2023-11-21] MEDS: PHENobarbital SODIUM 65 MG/1 ML VIAL IVPUSH PRN (08:21)
[2023-11-21] MEDS: NAPH,MB-DB/K PH,MBDB POWDER PACKET PO ONE (10:20)
[2023-11-21] MEDS: MAGNESIUM SULF 50% (8.12 MEQ/2 ML-1 GM VIAL) IVPB ONE (10:20)
[2023-11-21] MEDS: LORazepam 1 MG TABLET PO SCH (12:17)
[2023-11-21] MEDS: DEXTROSE 5%-NORMAL SALINE 1,000 ML IV SCH (16:40)
[2023-11-21] MEDS: hydrALAZINE HCL 20 MG/ML VIAL IVPUSH PRN (17:30)
[2023-11-22] MEDS ORDERED: LORazepam 0.5 MG TABLET PO PRN
[2023-11-22] MEDS ORDERED: LORazepam 0.5 MG TABLET PO SCH (05:00)
[2023-11-22] MEDS ORDERED: chlordiazePOXIDE HCL 10 MG CAPSULE PO SCH (05:00)
[2023-11-22 07:46] LABS: BASO % 1.5 % (0-2.0); EOS % 3.6 % (0-4.5); HEMATOCRIT 35.4 % (35.4-49); HEMOGLOBIN 12.3 GM/dL (11.7-16.9); LYMPH % 17.9 % (8-40); MCH 33.9 pg (25.7-33.7); MCHC 34.7 g/dl (32.0-35.9); MEAN CELL VOLUME 97.7 fl (80-96); MEAN PLT VOLUME 8.4 fl (7.5-11.1); MONO % 8.7 % (3.8-10.2); NEUT % 68.3 % (42.8-82.8); PLATELET COUNT 69 10^3/uL (134-434); RBC 3.63 M/mm3 (4.00-5.60); RDW 12.4 % (11.9-15.9); WHITE BLOOD COUNT 2.6 K/mm3 (4.0-10.0)
[2023-11-22 07:52] LABS: CHLORIDE 102 mmol/L (98-107); POTASSIUM 3.2 mmol/L (3.5-5.1); SODIUM 136 mmol/L (136-145)
[2023-11-22 07:57] LABS: INR 1.24 (0.83-1.09); PROTHROMBIN TIME (PATIENT) 14.3 SEC (9.7-13.0)
[2023-11-22 08:01] LABS: ALBUMIN 3.4 g/dl (3.4-5.0); ANION GAP 8 mmol/L (4-13); BLOOD UREA NITROGEN 7.6 mg/dL (7-18); CALCIUM 8.3 mg/dL (8.5-10.1); CO2 26 mmol/L (21-32); GLUCOSE,RANDOM 99 mg/dL (74-106); MAGNESIUM 1.5 mg/dL (1.8-2.4)
[2023-11-22 08:03] LABS: BILIRUBIN,TOTAL 1.7 mg/dL (0.2-1); PHOSPHOROUS 3.5 mg/dL (2.5-4.9); SGPT/ALT 119 U/L (13-61)
[2023-11-22 08:04] LABS: CREATININE 0.6 mg/dL (0.55-1.3); SGOT/AST 131 U/L (15-37)
[2023-11-22 08:05] LABS: ALK PHOS 142 U/L (45-117)
[2023-11-22] MEDS ORDERED: THIAMINE HCL 200 MG/2 ML VIAL IVPB SCH ×2 (10:00)
[2023-11-22] MEDS: POTASSIUM CHLORIDE ORAL LIQUID 20 MEQ/15 ML PO ONE (10:12)
[2023-11-22] MEDS: THIAMINE HCL 200 MG/2 ML VIAL IVPB SCH (10:12)
[2023-11-22] MEDS: MAGNESIUM SULF 50% (8.12 MEQ/2 ML-1 GM VIAL) IVPB ONE (10:13)
[2023-11-22 12:36] LABS: BILIRUBIN,DIRECT 0.8 mg/dL (0.0-0.2)
[2023-11-22 13:54] LABS: GAMMA GLUTAMYL TRANSPEPTIDASE 1482 U/L (5-85)
[2023-11-22] MEDS: ONDANSETRON 4 MG/2 ML VIAL IVPUSH PRN (14:14)
[2023-11-22] MEDS: PANTOPRAZOLE 40 MG TABLET PO SCH (21:05)
[2023-11-23] MEDS ORDERED: LORazepam 0.5 MG TABLET PO ONE (05:00)
[2023-11-23] MEDS ORDERED: chlordiazePOXIDE HCL 10 MG CAPSULE PO ONE (05:00)
[2023-11-23] MEDS: amLODIPine BESYLATE 5 MG TABLET (FP) PO ONE (05:22)
[2023-11-23] MEDS: LORazepam 1 MG TABLET PO SCH (05:49)
[2023-11-23] MEDS: LEVOTHYROXINE NA 100 MCG TABLET (FP) PO SCH (05:59)
[2023-11-23 07:11] LABS: BASO % 1.2 % (0-2.0); EOS % 4.1 % (0-4.5); HEMATOCRIT 35.8 % (35.4-49); HEMOGLOBIN 12.1 GM/dL (11.7-16.9); LYMPH % 23.9 % (8-40); MCH 33.7 pg (25.7-33.7); MCHC 33.8 g/dl (32.0-35.9); MEAN CELL VOLUME 99.6 fl (80-96); MEAN PLT VOLUME 7.7 fl (7.5-11.1); MONO % 15.9 % (3.8-10.2); NEUT % 54.9 % (42.8-82.8); PLATELET COUNT 109 10^3/uL (134-434); RDW 12.7 % (11.9-15.9); WHITE BLOOD COUNT 2.8 K/mm3 (4.0-10.0)
[2023-11-23 07:29] LABS: POTASSIUM 3.8 mmol/L (3.5-5.1)
[2023-11-23 07:31] LABS: CALCIUM 8.6 mg/dL (8.5-10.1)
[2023-11-23 07:32] LABS: ALBUMIN 3.2 g/dl (3.4-5.0); BLOOD UREA NITROGEN 7.1 mg/dL (7-18); MAGNESIUM 1.9 mg/dL (1.8-2.4)
[2023-11-23 07:35] LABS: CREATININE 0.7 mg/dL (0.55-1.3); PHOSPHOROUS 4.3 mg/dL (2.5-4.9)
[2023-11-23 07:36] LABS: BILIRUBIN,TOTAL 1.3 mg/dL (0.2-1); TOT PROT 6.9 g/dl (6.4-8.2)
[2023-11-23] MEDS: amLODIPine BESYLATE 10 MG TABLET (FP) PO SCH (09:16)
[2023-11-23] MEDS ORDERED: amLODIPine BESYLATE 10 MG TABLET (FP) PO SCH (10:00)
[2023-11-23] MEDS: LORazepam 1 MG TABLET PO PRN (14:17)
[2023-11-23] MEDS: ACETAMINOPHEN/CAFFEINE/BUTALBITAL 1 TAB PO ONE (15:17)
[2023-11-24] MEDS: LORazepam 0.5 MG TABLET PO SCH (06:04)
[2023-11-24 06:35] LABS: HEMATOCRIT 35.6 % (35.4-49); HEMOGLOBIN 12.2 GM/dL (11.7-16.9); MCH 33.5 pg (25.7-33.7); MCHC 34.4 g/dl (32.0-35.9); MEAN CELL VOLUME 97.4 fl (80-96); PLATELET COUNT 143 10^3/uL (134-434); RBC 3.65 M/mm3 (4.00-5.60); RDW 12.3 % (11.9-15.9); WHITE BLOOD COUNT 2.4 K/mm3 (4.0-10.0)
[2023-11-24 06:51] LABS: POTASSIUM 3.1 mmol/L (3.5-5.1)
[2023-11-24 06:56] LABS: ALBUMIN 3.5 g/dl (3.4-5.0); CALCIUM 9.2 mg/dL (8.5-10.1)
[2023-11-24 06:57] LABS: BLOOD UREA NITROGEN 5.6 mg/dL (7-18); MAGNESIUM 1.4 mg/dL (1.8-2.4)
[2023-11-24 06:59] LABS: PHOSPHOROUS 2.6 mg/dL (2.5-4.9)
[2023-11-24 07:00] LABS: CREATININE 0.6 mg/dL (0.55-1.3)
[2023-11-24 07:01] LABS: BILIRUBIN,TOTAL 1.4 mg/dL (0.2-1); TOT PROT 7.3 g/dl (6.4-8.2)
[2023-11-24] MEDS: MAGNESIUM SULF 50% (8.12 MEQ/2 ML-1 GM VIAL) IVPB ONE (07:33)
[2023-11-24 08:42] LABS: ANISOCYTOSIS 1+; MACROCYTOSIS 0
[2023-11-24] MEDS: POTASSIUM CHLORIDE TABS 20 MEQ TABLET.ER (FP) PO ONE (09:46)
[2023-11-24] MEDS: amLODIPine BESYLATE 10 MG TABLET (FP) PO SCH (09:47)
[2023-11-24] MEDS: LORazepam 0.5 MG TABLET PO PRN (14:43)
[2023-11-24] MEDS: POTASSIUM CHLORIDE ORAL LIQUID 20 MEQ/15 ML PO ONE (14:47)
[2023-11-24] MEDS: NICOTINE 21 MG/24 HOURS TOPICAL PATCH TD SCH (21:34)
[2023-11-25] MEDS: LORazepam 0.5 MG TABLET PO ONE (05:14)
[2023-11-25 07:26] LABS: HEMATOCRIT 35.4 % (35.4-49); HEMOGLOBIN 12.6 GM/dL (11.7-16.9); MCH 34.4 pg (25.7-33.7); MCHC 35.4 g/dl (32.0-35.9); MEAN PLT VOLUME 7.9 fl (7.5-11.1); PLATELET COUNT 204 10^3/uL (134-434); RBC 3.65 M/mm3 (4.00-5.60); RDW 12.7 % (11.9-15.9); WHITE BLOOD COUNT 2.9 K/mm3 (4.0-10.0)
[2023-11-25 07:42] LABS: POTASSIUM 3.5 mmol/L (3.5-5.1)
[2023-11-25 07:44] LABS: BLOOD UREA NITROGEN 9.6 mg/dL (7-18)
[2023-11-25 07:45] LABS: ALBUMIN 3.5 g/dl (3.4-5.0); MAGNESIUM 1.6 mg/dL (1.8-2.4)
[2023-11-25 07:48] LABS: CREATININE 0.7 mg/dL (0.55-1.3); PHOSPHOROUS 4.1 mg/dL (2.5-4.9)
[2023-11-25 07:49] LABS: BILIRUBIN,TOTAL 1.3 mg/dL (0.2-1); TOT PROT 7.3 g/dl (6.4-8.2)
[2023-11-25 08:36] LABS: ANISOCYTOSIS 1+; MACROCYTOSIS 0
[2023-11-25 15:40] VITALS: BMI 30.7
[2023-11-25] MEDS: LORazepam 1 MG TABLET PO PRN (18:34)
[2023-11-26 07:23] LABS: HEMATOCRIT 37.2 % (35.4-49); HEMOGLOBIN 12.6 GM/dL (11.7-16.9); MCH 33.5 pg (25.7-33.7); MCHC 33.9 g/dl (32.0-35.9); MEAN CELL VOLUME 98.7 fl (80-96); MEAN PLT VOLUME 8.3 fl (7.5-11.1); PLATELET COUNT 270 10^3/uL (134-434); RBC 3.77 M/mm3 (4.00-5.60); RDW 12.4 % (11.9-15.9); WHITE BLOOD COUNT 3.3 K/mm3 (4.0-10.0)
[2023-11-26 07:42] LABS: POTASSIUM 4.1 mmol/L (3.5-5.1)
[2023-11-26 07:47] LABS: ALBUMIN 3.4 g/dl (3.4-5.0); BLOOD UREA NITROGEN 17.2 mg/dL (7-18); CALCIUM 9.3 mg/dL (8.5-10.1)
[2023-11-26 07:50] LABS: CREATININE 1.1 mg/dL (0.55-1.3); PHOSPHOROUS 5.4 mg/dL (2.5-4.9)
[2023-11-26 07:52] LABS: BILIRUBIN,TOTAL 1.2 mg/dL (0.2-1); TOT PROT 7.4 g/dl (6.4-8.2)
[2023-11-26 09:07] LABS: ANISOCYTOSIS 0; MACROCYTOSIS 0
[2023-11-26 18:27] LABS: BILIRUBIN,DIRECT 0.6 mg/dL (0.0-0.2)
[2023-11-26 18:27] LABS: POTASSIUM 4.4 mmol/L (3.5-5.1)
[2023-11-26 18:29] LABS: ALBUMIN 3.7 g/dl (3.4-5.0); BLOOD UREA NITROGEN 21.4 mg/dL (7-18); CALCIUM 9.8 mg/dL (8.5-10.1)
[2023-11-26 18:31] LABS: CREATININE 1.2 mg/dL (0.55-1.3)
[2023-11-26 18:33] LABS: TOT PROT 7.8 g/dl (6.4-8.2)
[2023-11-27 07:57] LABS: HEMATOCRIT 36.6 % (35.4-49); HEMOGLOBIN 12.5 GM/dL (11.7-16.9); MCH 33.6 pg (25.7-33.7); MCHC 34.3 g/dl (32.0-35.9); MEAN CELL VOLUME 97.9 fl (80-96); MEAN PLT VOLUME 8.1 fl (7.5-11.1); PLATELET COUNT 299 10^3/uL (134-434); RBC 3.74 M/mm3 (4.00-5.60); RDW 12.4 % (11.9-15.9); WHITE BLOOD COUNT 2.9 K/mm3 (4.0-10.0)
[2023-11-27 08:23] LABS: ALBUMIN 3.5 g/dl (3.4-5.0); BLOOD UREA NITROGEN 20.9 mg/dL (7-18); CALCIUM 9.4 mg/dL (8.5-10.1)
[2023-11-27 08:26] LABS: BILIRUBIN,DIRECT 0.6 mg/dL (0.0-0.2); CREATININE 0.9 mg/dL (0.55-1.3); TOT PROT 7.4 g/dl (6.4-8.2)
[2023-11-27 08:28] LABS: BILIRUBIN,TOTAL 1.1 mg/dL (0.2-1)
[2023-11-27 09:31] LABS: ANISOCYTOSIS 1+; MACROCYTOSIS 1+
[2023-11-27 13:09] VITALS: BP 129/76; PULSE 90; RESP 20; TEMP 98.1
== END 2023-11-27 17:30 | disposition home or self-care (01) | DRG 773 ==
LOC: JER 18:34 → JERBED 22:38 → OBSVTOIN 11-19 00:27 → J8W 11-19 01:34 → J2W 11-19 12:01 → JICU 11-19 16:29
PROVIDERS: ADMIT Internal Medicine; ATTEND Internal Medicine
PROC: HZ2ZZZZ Detoxification Services for Substance Abuse Treatment (ICD-10-PCS; principal; 2023-11-18)
DX: F10.230 Alcohol dependence with withdrawal, uncomplicated (principal); F11.20 Opioid dependence, uncomplicated; F10.251 Alcohol dependence with alcohol-induced psychotic disorder with hallucinations; F13.20 Sedative, hypnotic or anxiolytic dependence, uncomplicated; F31.9 Bipolar disorder, unspecified; E03.9 Hypothyroidism, unspecified; K70.10 Alcoholic hepatitis without ascites; I10 Essential (primary) hypertension; E51.2 Wernicke's encephalopathy; M62.82 Rhabdomyolysis; E87.1 Hypo-osmolality and hyponatremia; N17.9 Acute kidney failure, unspecified; J18.9 Pneumonia, unspecified organism; E87.20 Acidosis, unspecified; F41.8 Other specified anxiety disorders; K29.20 Alcoholic gastritis without bleeding; D69.59 Other secondary thrombocytopenia; T50.905A Adverse effect of unspecified drugs, medicaments and biological substances, initial encounter; K76.0 Fatty (change of) liver, not elsewhere classified; D70.9 Neutropenia, unspecified; F17.210 Nicotine dependence, cigarettes, uncomplicated
CPT/HCPCS: 36415; 70450-TC; 71045-TC-FY; 71046-TC-FY; 74178-TC; 76700-TC; 76705-TC; 80053; 80307; 81003; 82010; 82140; 82150; 82247; 82248; 82550; 82553; 82803; 82977; 83605; 83690; 83735; 84100; 84436; 84443; 85025; 85027; 85610; 86708; 86803; 87040; 87086; 87340; 87389; 87517; 87635; 93005; 93010; 97116-GP; 97161-GP; 99285-25; G0378; J0131; Q9967